=== PATIENT | female | born 1945 | race Caucasian/White ===

== ENCOUNTER → 2017-05-02 | Day surgery (SDC) | payer MEDICARE, BC ==
[2017-04-28 10:36] VITALS: BMI 22.6
[~2017-05-02] MED LIST: MIDAZOLAM 2 MG/2 ML VIAL IV ONE; MIDAZOLAM 2 MG/2 ML VIAL ONE; SODIUM CHLORIDE 0.9% 250 ML IV ONE; SODIUM CHLORIDE 0.9% 500 ML IV ONE; fentaNYL (PF) 50 MCG/ML 2 ML AMP IV ONE; fentaNYL (PF) 50 MCG/ML 2 ML AMP ONE
[2017-05-02] MEDS: BENZOCAINE SPRAY 1 SPRAY CAN MUCOUS MEM ONE ×2 (10:03→10:11)
[2017-05-02 10:22] VITALS: RESP 16
[2017-05-02 10:34] VITALS: TEMP 98
--- NOTE | 2017-05-02 11:13 | ECHOT ---
DATE OF SERVICE: 05/02/2017 PROCEDURE PERFORMED: Transesophageal echocardiogram. INDICATIONS: This is a pleasant 72-year-old female patient who was experiencing recurrent stroke. The SHEBA is to rule out any cardiac source of embolization. COMPLICATIONS: None. LEVEL OF SEDATION: Moderate with a sedation length of about 15 minutes using 2 of Versed and 50 of fentanyl in divided doses. PROCEDURE DESCRIPTION: After obtaining an informed consent, explaining the procedure, benefits, risks, complications and alternatives, the patient was brought to the transesophageal echocardiogram suite. A pulse oximetry and heart rate monitors were attached to the patient prior to the procedure. The patient's throat was sprayed using lidocaine locally. Following that, the patient was turned into left lateral position. A bite guard was placed and the patient was then sedated with the above doses of Versed and fentanyl in divided doses. Following that, the transesophageal echocardiogram probe was advanced through the bite guard into the mid esophagus where 2-D echocardiogram images as well as color Doppler images of various cardiac structures were obtained. We evaluated the interatrial septum using 2-D echocardiogram, color Doppler, and contrast study. The procedure was completed. There were no complications. FINDINGS: The left ventricular dimension and systolic function appeared to be within normal limits with an ejection fraction of about 55% and normal wall motion. Right ventricle is of normal size and function. The left atrium appeared to be within normal limits for dimension. The left atrial appendage appeared to be free of from any thrombus. The interatrial septum appeared to be intact without any evidence of shunt. The aortic valve is slightly thickened valve, but it is trileaflet valve without stenosis with mild insufficiency. The mitral valve seems to be also mildly thickened with mild MR. Normal tricuspid valve and pulmonic valve. CONCLUSION: 1. There is no evidence of cardiac source of embolization. 2. Intact interatrial septum without any evidence of shunt. 3. Normal left atrial appendage without any thrombus. 4. Normal left ventricular dimension and systolic function. 5. Normal cardiac chamber sizes. 6. Aortic sclerosis without stenosis with mild insufficiency. 7. Thickened mitral valve leaflets with mild mitral regurgitation. 8. Normal tricuspid valve and pulmonic valve. 9. No evidence of pericardial effusion. 10. Normal aortic root dimension. MTDD
[2017-05-02 11:39] VITALS: BP 129/64; PULSE 68
== END | disposition home or self-care (01) ==
LOC: CATHCVL 08:32
PROVIDERS: ATTEND Internal Medicine Interventional Cardiology
DX: G45.9 Transient cerebral ischemic attack, unspecified (principal); I25.10 Atherosclerotic heart disease of native coronary artery without angina pectoris; E78.5 Hyperlipidemia, unspecified; I10 Essential (primary) hypertension; Z79.899 Other long term (current) drug therapy; Z95.5 Presence of coronary angioplasty implant and graft; E11.9 Type 2 diabetes mellitus without complications; Z87.891 Personal history of nicotine dependence; I65.23 Occlusion and stenosis of bilateral carotid arteries; Z79.02 Long term (current) use of antithrombotics/antiplatelets; Z79.82 Long term (current) use of aspirin
CPT/HCPCS: 93312; 93320; 93325; 99152; J2250; J3010